=== PATIENT | male | born 1970 | race Caucasian/White ===

== ENCOUNTER 2021-01-17 11:36 | Emergency (ER) | payer OTHER ==
[~2021-01-17] VITALS: Ht 193 cm; Wt 68.0 kg
[~2021-01-17 11:36] MED LIST: Bactrim Ds Tab1 EACH PO; CEPH500 PO; IBUP800 PO; LIDO700A20 TOP; Robaxin500 MG PO
[2021-01-17 14:15] LABS: BASOPHILS ABSOLUTE AUTO 0.05 K/mm3 (0.00-0.23); BASOPHILS PERCENT AUTO 1 % (0-2); EOSINOPHILS ABSOLUTE AUTO 0.09 K/mm3 (0.00-0.68); EOSINOPHILS PERCENT AUTO 1 % (0-6); Hematocrit 39.9 % (37.0-53.0); Hemoglobin 13.7 g/dL (13.5-17.5); IMMATURE GRAN ABSOLUTE AUTO 0.06 K/mm3 (0.00-0.10); IMMATURE GRAN PERCENT AUTO 1 % (0-1); LYMPHOCYTES ABSOLUTE AUTO 1.01 K/mm3 (0.84-5.20); LYMPHOCYTES PERCENT AUTO 11 % (21-46); MONOCYTES ABSOLUTE AUTO 0.91 K/mm3 (0.16-1.47); MONOCYTES PERCENT AUTO 10 % (4-13); Mean Corpuscular HGB 32.9 pg (26.0-34.0); Mean Corpuscular HGB Conc 34.3 g/dL (31.5-36.5); Mean Corpuscular Volume 96 fL (80-100); Mean Platelet Volume 12.6 fL (9.1-12.4); NEUTROPHILS ABSOLUTE AUTO 7.15 K/mm3 (1.96-9.15); NEUTROPHILS PERCENT AUTO 77 % (41-73); Platelet Count 88 K/mm3 (150-400); RDW Coefficient Variation 16.4 % (11.7-14.2); RDW Standard Deviation 58.2 fL (35.1-46.3); Red Blood Cell Count 4.17 M/mm3 (4.30-5.90); White Blood Cell Count 9.27 K/mm3 (4.00-11.30)
[2021-01-17 14:23] LABS: Alanine Aminotransfer (ALT/SGP 31 U/L (12-78); Albumin, Blood 3.1 g/dL (3.4-5.0); Albumin/Globulin Ratio 0.7 (0.8-1.8); Alk Phos 74 U/L (50-136); Anion Gap 11 mmol/L (6-16); Aspartate Aminotrans (AST/SGOT 37 U/L (12-37); Bilirubin, Total 1.1 mg/dL (0.1-1.0); Blood Urea Nitrogen 11 mg/dL (8-24); Bun/Creatinine Ratio 11.9 (12.0-20.0); CO2, Blood 23 mmol/L (21-32); Calcium, Blood 8.4 mg/dL (8.5-10.1); Chloride, Blood 99 mmol/L (98-108); Creatinine, Blood 0.92 mg/dL (0.60-1.20); Globulin, Blood 4.3 g/dL (2.2-4.0); Glomerular Filtration Rate >60 (60-); Glucose, Blood 166 mg/dL (70-99); Potassium, Blood 3.2 mmol/L (3.5-5.5); Sodium, Blood 133 mmol/L (136-145); Total Protein, Blood 7.4 g/dL (6.4-8.2); Troponin I <0.015 ng/mL (0.000-0.040)
[2021-01-17] MEDS ORDERED: Percocet 5-3251 EACH PO (15:34)
[2021-01-17] MEDS ORDERED: IBU800 MG PO (15:34)
== END 2021-01-17 15:40 | disposition home or self-care (01) ==
LOC: ER 11:36
PROVIDERS: Physician Assistant
DX: S52.502A Unspecified fracture of the lower end of left radius, initial encounter for closed fracture (principal); F17.210 Nicotine dependence, cigarettes, uncomplicated; Z79.899 Other long term (current) drug therapy; W18.09XA Striking against other object with subsequent fall, initial encounter
CPT/HCPCS: 29105; 36415; 71046; 73110; 80053; 84484; 85025; 93005; 93010; 99284-25; A9270

== ENCOUNTER 2021-02-02 10:53 | Day surgery (SDC) | payer OTHER ==
[~2021-02-02] VITALS: Ht 193 cm; Wt 65.0 kg
[~2021-02-02 10:53] MED LIST changes: +IBU800 MG PO; +Percocet 5-3251 EACH PO
[2021-02-02] MEDS ORDERED: NAPR500 PO (11:09)
--- NOTE | 2021-02-02 11:46 | NUR ---
History, Chart, Medications and Allergies reviewed before start of procedure.Lungs clear T/O to Auscultation. Patient confirms NPO status and agrees with scheduled surgery. Pre-Op teaching done. Pt verbalizes understanding. PATIENT ABLE TO FEEL SENSATION ON RIGHT HAND. PATIENT REPORTS FINGERS BEING COLD AND TINGLING. RIGHT HAND IS COOL TO THE TOUCH, FINGERS ARE SWOLLEN.
--- NOTE | 2021-02-02 13:27 | NUR ---
Discharge instructions reviewed with patient. Patient verbalizes understanding. Copy given to patient to take home. Verified pt appt for repeat x-ray 02/03/21 at 1000.
--- NOTE | 2021-02-02 15:05 | NUR ---
AT TIMES PT LAYS QUIETLY EYES OPEN OFFERS NO COMPLAINT. WHEN ASKED TO RATE PAIN STATES 8 PLUS
--- NOTE | 2021-02-02 15:35 | NUR ---
PT STATES HE ONLY HAS [address] LAO DID NOT WRITE FOR POST OP RX DR CALLED AND ADDRESSED" DR LAO STATES DR PARIKH WROTE A RX FOR #30 AND HE WILL NOT WRITE ANOTHER RX" PT ALL OF A SUDDEN REMEBERED THAT HE HAD THAT RX
== END 2021-02-02 22:36 | disposition home or self-care (01) ==
LOC: ORSCMMR 10:53
DX: S52.552A Other extraarticular fracture of lower end of left radius, initial encounter for closed fracture (principal); G56.02 Carpal tunnel syndrome, left upper limb; F17.210 Nicotine dependence, cigarettes, uncomplicated; Z01.812 Encounter for preprocedural laboratory examination; Z20.822 Contact with and (suspected) exposure to COVID-19
CPT/HCPCS: A9270; C1713; J0330; J0690; J1100; J1170; J1885; J2270; J2405; J2704; J3010; J7120; U0004

== ENCOUNTER 2024-03-27 03:22 | Emergency (ER) | payer OTHER ==
[~2024-03-27] VITALS: Ht 177.8 cm; Wt 70.3 kg
[~2024-03-27 03:22] MED LIST changes: +NAPR500 PO
[2024-03-27] MEDS ORDERED: FentaNYL Citrate 50 MCG/ML 2 ML Injection ONE (03:29)
[2024-03-27] MEDS ORDERED: Tetanus,Diphtheria Toxd Ped/Pf 0.5 ML VIAL IM ONE (03:35)
[2024-03-27] MEDS ORDERED: FentaNYL Citrate 50 MCG/ML 2 ML Injection IV ONE (03:35)
[2024-03-27 03:43] LABS: BASOPHILS ABSOLUTE AUTO 0.09 K/mm3 (0.00-0.23); BASOPHILS PERCENT AUTO 1 % (0-2); EOSINOPHILS ABSOLUTE AUTO 0.37 K/mm3 (0.00-0.68); EOSINOPHILS PERCENT AUTO 5 % (0-6); Hematocrit 35.4 % (37.0-53.0); Hemoglobin 12.2 g/dL (13.5-17.5); IMMATURE GRAN ABSOLUTE AUTO 0.05 K/mm3 (0.00-0.10); IMMATURE GRAN PERCENT AUTO 1 % (0-1); LYMPHOCYTES ABSOLUTE AUTO 3.57 K/mm3 (0.84-5.20); LYMPHOCYTES PERCENT AUTO 48 % (21-46); MONOCYTES ABSOLUTE AUTO 0.84 K/mm3 (0.16-1.47); MONOCYTES PERCENT AUTO 11 % (4-13); Mean Corpuscular HGB 32.5 pg (26.0-34.0); Mean Corpuscular HGB Conc 34.5 g/dL (31.5-36.5); Mean Corpuscular Volume 94 fL (80-100); Mean Platelet Volume 9.7 fL (9.1-12.4); NEUTROPHILS PERCENT AUTO 34 % (41-73); Platelet Count 218 K/mm3 (150-400); RDW Coefficient Variation 17.5 % (11.7-14.2); RDW Standard Deviation 59.3 fL (35.1-46.3); Red Blood Cell Count 3.75 M/mm3 (4.30-5.90); White Blood Cell Count 7.42 K/mm3 (4.00-11.30)
[2024-03-27 04:00] VITALS: BP 123/84
[2024-03-27 04:04] LABS: International Normalized Ratio 0.93
[2024-03-27 04:14] LABS: Alanine Aminotransfer (ALT/SGP 15 U/L (12-78); Albumin, Blood 2.7 g/dL (3.4-5.0); Albumin/Globulin Ratio 0.8 (0.8-1.8); Alk Phos 93 U/L (50-136); Anion Gap 9 mmol/L (3-11); Aspartate Aminotrans (AST/SGOT 18 U/L (12-37); Bilirubin, Total 0.2 mg/dL (0.1-1.0); Blood Urea Nitrogen 4 mg/dL (8-24); Bun/Creatinine Ratio 5.3 (12.0-20.0); CO2, Blood 27 mmol/L (21-32); Calcium, Blood 6.9 mg/dL (8.5-10.1); Chloride, Blood 105 mmol/L (98-108); Creatinine, Blood 0.75 mg/dL (0.60-1.20); Ethanol (Alcohol), Blood, Med 368 mg/dL; Globulin, Blood 3.5 g/dL (2.2-4.0); Glomerular Filtration Rate 108 (60-); Glucose, Blood 106 mg/dL (70-99); Potassium, Blood 3.4 mmol/L (3.5-5.5); Sodium, Blood 138 mmol/L (136-145); Total Protein, Blood 6.2 g/dL (6.4-8.2)
[2024-03-27] MEDS ORDERED: HYDROmorphone HCl/Pf 1MG SYR IV ONE ×3 (04:40→06:35)
[2024-03-27] MEDS ORDERED: CeFAZolin Sodium 2,000 MG in NS 100 ML IV ONE (05:55)
== END 2024-03-27 06:49 | disposition short-term general hospital (02) ==
LOC: ER 03:22
PROVIDERS: Emergency Medicine
DX: S27.0XXA Traumatic pneumothorax, initial encounter (principal); S22.42XA Multiple fractures of ribs, left side, initial encounter for closed fracture; S02.642A Fracture of ramus of left mandible, initial encounter for closed fracture; S02.641A Fracture of ramus of right mandible, initial encounter for closed fracture; S01.01XA Laceration without foreign body of scalp, initial encounter; F10.129 Alcohol abuse with intoxication, unspecified; F17.210 Nicotine dependence, cigarettes, uncomplicated; Y04.8XXA Assault by other bodily force, initial encounter; Z79.1 Long term (current) use of non-steroidal anti-inflammatories (NSAID)
CPT/HCPCS: 12004; 70450; 70486; 71045; 71260; 72125; 73130; 74177; 80053; 85025; 85610; 86850; 86900; 86901; 90702; 96374-59; 96375-59; 96376-59; 99285-25; J0690; J1170; J3010; Q9967